=== PATIENT | male | born 1955 | race Caucasian/White ===

== ENCOUNTER 2018-01-28 12:54 | Inpatient (IN) | payer OTHER ==
[~2018-01-28] VITALS: Ht 177.8 cm; Wt 81.4 kg
[~2018-01-28 12:54] MED LIST: ARIC23TA PO; NAME5TAB2 PO; SERT25TA83 PO
[2018-01-28 14:05] VITALS: BP 124/73; PULSE 120; RESP 18; TEMP 96.9; O2SAT 96
[2018-01-28] MEDS ORDERED: ADVA250A INH (14:38)
[2018-01-28] MEDS ORDERED: ATOR40TA16 PO (14:39)
[2018-01-28] MEDS ORDERED: DIVA250T3 PO (14:39)
[2018-01-28] MEDS ORDERED: DONE10TA7 PO (14:42)
[2018-01-28] MEDS ORDERED: LISI-585 PO (14:43)
[2018-01-28] MEDS ORDERED: MEMA1TAB PO (14:43)
[2018-01-28] MEDS ORDERED: RISP0.252 PO ×2 (14:44→14:46)
[2018-01-28] MEDS ORDERED: SERT25TA83 PO (14:46)
[2018-01-28] MEDS ORDERED: MIRTA15 PO (14:47)
--- NOTE | 2018-01-28 14:55 | PD ---
HPI Chief Complaint: Psychiatric Symptoms Time Seen by Provider: 14:29 Travel History International Travel<30 days: No Contact w/Intl Traveler<30days: No Traveled to known affect area: No History of Present Illness HPI Patient is a 62-year-old male presenting to emergency department for psychiatric evaluation under Lewis act. Per the Lewis act report patient was acting aggressively. He stated that he would hurt however he wanted to. [facility] reported that he was not taking his medications however his medication reconciliation from the [facility] shows medications have been given. Patient states he has been taking his medications. Patient denies any complaints at this time. He denies any significant past medical history. He denies any suicidal homicidal ideations, hallucinations both auditory and visual. Symptom onset is unknown, symptom severity is unknown. PFSH Past Medical History Depression: Yes High Cholesterol: Yes COPD: Yes Dementia: Yes Psychiatric: Yes Past Surgical History Other Surgery: Yes (FACIAL SURGERY) Social History Alcohol Use: No Tobacco Use: Yes (/2 PPD) Substance Use: No (PT DENIES) Allergies-Medications (Allergen,Severity, Reaction): Coded Allergies: No Known Allergies (Unverified Allergy, Unknown, 01/28/18) Per paperwork brought in from facility. Reported Meds & Prescriptions Reported Meds & Active Scripts Active Reported Mirtazapine 15 Mg Tab 15 Mg PO HS PRN Sertraline (Sertraline HCl) 25 Mg Tab 25 Mg PO DAILY Risperidone 0.25 Mg Tab 0.25 Mg PO DAILY (1400) Risperidone 0.25 Mg Tab 0.25 Mg PO Q12HR Memantine 5 Mg Tab 5 Mg PO DAILY Zestoretic (Lisinopril-Hctz) 10-12.5 Mg Tab 1 Tab PO DAILY Donepezil 10 Mg Tab 20 Mg PO HS Divalproex ER (Divalproex Sodium) 250 Mg Kathy 250 Mg PO BID Atorvastatin (Atorvastatin Calcium) 40 Mg Tab 40 Mg PO HS Advair Diskus Inh (Fluticasone-Salmeterol Inh) 250-50 Mcg/Blist Aer 1 Puff INH BID Rinse mouth after use. Review of Systems ROS Limitations: Poor Historian Except as stated in HPI: all other systems reviewed are Neg Psychiatric: No: Depression, Suicidal Ideations, Substance Abuse, Homicidal Ideation Physical Exam Narrative GENERAL: Well-developed, well-nourished, alert elderly male. Presenting in no acute distress. SKIN: Warm and dry. Superficial skin tear to left inner forearm, 0.5 cm. Abrasion to right elbow posteriorly. HEAD: Atraumatic. Normocephalic. EYES: Pupils equal and round. No scleral icterus. No injection or drainage. ENT: No nasal bleeding or discharge. Mucous membranes pink and moist. NECK: Trachea midline. No JVD. CARDIOVASCULAR: Regular rate and rhythm. RESPIRATORY: No accessory muscle use. Clear to auscultation. Breath sounds equal bilaterally. GASTROINTESTINAL: Abdomen soft, non-tender, nondistended. Hepatic and splenic margins not palpable. MUSCULOSKELETAL: Extremities without clubbing, cyanosis, or edema. No obvious deformities. NEUROLOGICAL: Awake and alert, oriented to self only. No obvious cranial nerve deficits. Motor grossly within normal limits. Five out of 5 muscle strength in the arms and legs. Normal speech. PSYCHIATRIC: Appropriate mood and affect; insight and judgment impaired. Data Data Last Documented VS Vital Signs Date Time Temp Pulse Resp B/P (MAP) Pulse Ox O2 Delivery O2 Flow Rate FiO2 01/28/18 18:02 98.7 89 18 148/80 (102) 97 Room Air Orders Orders Complete Blood Count With Diff (01/28/18 14:27) Comprehensive Metabolic Panel (01/28/18 14:27) Thyroid Stimulating Hormone (01/28/18 14:27) Urinalysis - C+S If Indicated (01/28/18 14:27) Psych Screen (01/28/18 14:27) Drug Screen, Random Urine (01/28/18 14:27) Alcohol (Ethanol) (01/28/18 14:27) Salicylates (Aspirin) (01/28/18 14:27) Tylenol (Acetaminophen) (01/28/18 14:27) Diet Regular Basic (01/28/18 Dinner) Labs Laboratory Tests Test 01/28/18 13:04 01/28/18 17:30 White Blood Count 12.1 TH/MM3 Red Blood Count 4.61 MIL/MM3 Hemoglobin 15.0 GM/DL Hematocrit 44.0 % Mean Corpuscular Volume 95.5 FL Mean Corpuscular Hemoglobin 32.6 PG Mean Corpuscular Hemoglobin Concent 34.1 % Red Cell Distribution Width 13.2 % Platelet Count 371 TH/MM3 Mean Platelet Volume 8.8 FL Neutrophils (%) (Auto) 57.5 % Lymphocytes (%) (Auto) 28.5 % Monocytes (%) (Auto) 11.9 % Eosinophils (%) (Auto) 1.6 % Basophils (%) (Auto) 0.5 % Neutrophils # (Auto) 7.0 TH/MM3 Lymphocytes # (Auto) 3.5 TH/MM3 Monocytes # (Auto) 1.4 TH/MM3 Eosinophils # (Auto) 0.2 TH/MM3 Basophils # (Auto) 0.1 TH/MM3 CBC Comment DIFF FINAL Differential Comment Blood Urea Nitrogen 16 MG/DL Creatinine 1.51 MG/DL Random Glucose 129 MG/DL Total Protein 8.4 GM/DL Albumin 4.0 GM/DL Calcium Level 9.3 MG/DL Alkaline Phosphatase 74 U/L Aspartate Amino Transf (AST/SGOT) 15 U/L Alanine Aminotransferase (ALT/SGPT) 18 U/L Total Bilirubin 0.4 MG/DL Sodium Level 138 MEQ/L Potassium Level 4.2 MEQ/L Chloride Level 103 MEQ/L Carbon Dioxide Level 19.2 MEQ/L Anion Gap 16 MEQ/L Estimat Glomerular Filtration Rate 47 ML/MIN Thyroid Stimulating Hormone 3rd Gen 2.010 uIU/ML Salicylates Level LESS THAN 1.7 MG/DL Acetaminophen Level LESS THAN 2.0 MCG/ML Ethyl Alcohol Level LESS THAN 3 MG/DL Urine Color YELLOW Urine Turbidity CLEAR Urine pH 6.0 Urine Specific [place] 1.021 Urine Protein NEG mg/dL Urine Glucose (UA) NEG mg/dL Urine Ketones NEG mg/dL Urine Occult Blood NEG Urine Nitrite NEG Urine Bilirubin NEG Urine Urobilinogen LESS THAN 2.0 MG/DL Urine Leukocyte Esterase TRACE Urine RBC 1 /hpf Urine WBC LESS THAN 1 /hpf Urine Bacteria RARE /hpf Urine Hyaline Casts 5 /lpf Urine Mucus FEW /lpf Microscopic Urinalysis Comment CULT NOT INDICATED Urine Opiates Screen NEG Urine Barbiturates Screen NEG Urine Amphetamines Screen NEG Urine Benzodiazepines Screen NEG Urine Cocaine Screen NEG Urine Cannabinoids Screen NEG MDM Medical Decision Making Medical Screen Exam Complete: Yes Emergency Medical Condition: Yes Interpretation(s) Laboratory Tests Test 01/28/18 13:04 01/28/18 17:30 White Blood Count 12.1 TH/MM3 Red Blood Count 4.61 MIL/MM3 Hemoglobin 15.0 GM/DL Hematocrit 44.0 % Mean Corpuscular Volume 95.5 FL Mean Corpuscular Hemoglobin 32.6 PG Mean Corpuscular Hemoglobin Concent 34.1 % Red Cell Distribution Width 13.2 % Platelet Count 371 TH/MM3 Mean Platelet Volume 8.8 FL Neutrophils (%) (Auto) 57.5 % Lymphocytes (%) (Auto) 28.5 % Monocytes (%) (Auto) 11.9 % Eosinophils (%) (Auto) 1.6 % Basophils (%) (Auto) 0.5 % Neutrophils # (Auto) 7.0 TH/MM3 Lymphocytes # (Auto) 3.5 TH/MM3 Monocytes # (Auto) 1.4 TH/MM3 Eosinophils # (Auto) 0.2 TH/MM3 Basophils # (Auto) 0.1 TH/MM3 CBC Comment DIFF FINAL Differential Comment Blood Urea Nitrogen 16 MG/DL Creatinine 1.51 MG/DL Random Glucose 129 MG/DL Total Protein 8.4 GM/DL Albumin 4.0 GM/DL Calcium Level 9.3 MG/DL Alkaline Phosphatase 74 U/L Aspartate Amino Transf (AST/SGOT) 15 U/L Alanine Aminotransferase (ALT/SGPT) 18 U/L Total Bilirubin 0.4 MG/DL Sodium Level 138 MEQ/L Potassium Level 4.2 MEQ/L Chloride Level 103 MEQ/L Carbon Dioxide Level 19.2 MEQ/L Anion Gap 16 MEQ/L Estimat Glomerular Filtration Rate 47 ML/MIN Thyroid Stimulating Hormone 3rd Gen 2.010 uIU/ML Salicylates Level LESS THAN 1.7 MG/DL Acetaminophen Level LESS THAN 2.0 MCG/ML Ethyl Alcohol Level LESS THAN 3 MG/DL Urine Color YELLOW Urine Turbidity CLEAR Urine pH 6.0 Urine Specific [place] 1.021 Urine Protein NEG mg/dL Urine Glucose (UA) NEG mg/dL Urine Ketones NEG mg/dL Urine Occult Blood NEG Urine Nitrite NEG Urine Bilirubin NEG Urine Urobilinogen LESS THAN 2.0 MG/DL Urine Leukocyte Esterase TRACE Urine RBC 1 /hpf Urine WBC LESS THAN 1 /hpf Urine Bacteria RARE /hpf Urine Hyaline Casts 5 /lpf Urine Mucus FEW /lpf Microscopic Urinalysis Comment CULT NOT INDICATED Urine Opiates Screen NEG Urine Barbiturates Screen NEG Urine Amphetamines Screen NEG Urine Benzodiazepines Screen NEG Urine Cocaine Screen NEG Urine Cannabinoids Screen NEG Vital Signs Date Time Temp Pulse Resp B/P (MAP) Pulse Ox O2 Delivery O2 Flow Rate FiO2 01/28/18 18:02 98.7 89 18 148/80 (102) 97 Room Air 01/28/18 16:01 83 134/70 (91) 01/28/18 14:05 96.9 120 18 124/73 (90) 96 Room Air Differential Diagnosis Mood disorder versus UTI versus metabolic abnormality versus psychosis versus dementia versus other Narrative Course Patient is a 62-year-old well-appearing male. Presenting under Lewis act for psychiatric evaluation secondary to making threatening statements. Patient denies this. He denies noncompliance of medications. Medication reconciliation from the [facility] facility shows patient has been taking his medications. Mental health screening discussed with the patient. Psychiatric screen ordered. Labs reviewed, no acute findings identified. Patient was initially tachycardic on arrival, his vital signs are reassessed, heart rate is normalized. Patient is medically clear for psychiatric evaluation. Diagnosis Primary Impression: Medical clearance for psychiatric admission Condition: Stable Jillian Wasserman Jan 28, 2018 14:55
[2018-01-28 15:23] LABS: BASOPHIL # 0.1 TH/MM3 (0-0.2); BASOPHIL % 0.5 % (0.0-2.0); EOSINOPHIL # 0.2 TH/MM3 (0-0.4); EOSINOPHIL % 1.6 % (0.0-4.0); LYMPH % 28.5 % (9.0-44.0); LYMPHOCYTE # 3.5 TH/MM3 (1.0-4.8); MEAN CELL VOLUME 95.5 FL (80.0-100.0); MEAN CORPUSCULAR HEMOGLOBIN 32.6 PG (27.0-34.0); MEAN CORPUSCULAR HGB CONC 34.1 % (32.0-36.0); MEAN PLATELET VOLUME 8.8 FL (7.0-11.0); MONO % 11.9 % (0.0-8.0); MONOCYTE # 1.4 TH/MM3 (0-0.9); NEUT % 57.5 % (16.0-70.0); PLATELET COUNT 371 TH/MM3 (150-450); RED BLOOD COUNT 4.61 MIL/MM3 (4.50-5.90); RED CELL DISTRIBUTION WIDTH 13.2 % (11.6-17.2); WHITE BLOOD COUNT 12.1 TH/MM3 (4.0-11.0)
[2018-01-28 15:41] LABS: AST (GOT) 15 U/L (15-37); BICARBONATE 19.2 MEQ/L (21.0-32.0); BLOOD UREA NITROGEN 16 MG/DL (7-18); CALCIUM 9.3 MG/DL (8.5-10.1); CHLORIDE 103 MEQ/L (98-107); CREATININE 1.51 MG/DL (0.60-1.30); GLOMERULAR FILTRATION RATE 47 ML/MIN (>89); GLUCOSE,RANDOM 129 MG/DL (74-106); SODIUM (NA) 138 MEQ/L (136-145)
[2018-01-28 15:42] LABS: ACETAMINOPHEN LESS THAN 2.0 MCG/ML (10.0-30.0)
[2018-01-28 15:48] LABS: ALKALINE PHOSPHATASE 74 U/L (45-117); ALT (GPT) 18 U/L (12-78); TOTAL BILIRUBIN ADULT 0.4 MG/DL (0.2-1.0); TOTAL PROTEIN 8.4 GM/DL (6.4-8.2)
[2018-01-28 16:01] VITALS: BP 134/70; PULSE 83
[2018-01-28 18:02] VITALS: BP 148/80; PULSE 89; RESP 18; TEMP 98.7; O2SAT 97
[2018-01-28 18:58] LABS: BACTERIA, URINE RARE /hpf; BILIRUBIN, URINE NEG (NEG); BLOOD, URINE NEG (NEG); GLUCOSE,URINE NEG (NEG); HYALINE CAST, URINE 5 /lpf (RARE); KETONE, URINE NEG (NEG); MUCUS URINE FEW /lpf (OCC); NITRITE,URINE NEG (NEG); URINE COLOR YELLOW (YELLW/STRAW); URINE LEUKOCYTE ESTERASE TRACE (NEG)
[2018-01-28 22:31] VITALS: BP 151/69; PULSE 88; RESP 18; TEMP 98; O2SAT 96
[2018-01-29] MEDS ORDERED: risperiDONE 0.25 MG TAB PO ONE (01:45)
[2018-01-29] MEDS ORDERED: MIRTAZAPINE 15 MG TAB PO ONE (01:45)
[2018-01-29] MEDS ORDERED: DONEPEZIL HCL 5 MG TAB PO ONE (01:45)
[2018-01-29] MEDS ORDERED: MEMANTINE HCL 5 MG TAB PO ONE (01:45)
[2018-01-29 07:07] VITALS: BP 129/72; PULSE 74; RESP 18; TEMP 97.8; O2SAT 97
[2018-01-29] MEDS: HYDROCHLOROTHIAZIDE 25 MG TAB PO SCH (09:08)
[2018-01-29] MEDS: LISINOPRIL 10 MG TAB PO SCH (09:08)
--- NOTE | 2018-01-29 09:13 | HHI.HP ---
Provisional Diagnosis Admission Date Blanco I. Dementia with behavioral disturbances Blanco II. Deferred Blanco III. Hypertension, hypercholesterolemia Certification of Person's Competence To Provide Express and Informed Consent I have personally examined Kenneth Head , a person being served at [facility] on, Jan 29, 2018 09:05. Express and informed consent means consent voluntarily given in writing, by a competent person, after sufficient explanation and disclosure of the subject matter involved to enable the person to make a knowing and willful decision without any element of force, fraud, deceit, duress, or other form of constraint or coercion. This person is 18 years of age or older, is not now known to be incompetent to consent to treatment with a guardian advocate, and does not have a health care surrogate or proxy currently making medical treatment decisions. I have found this person to be one of the following: [] Competent to provide express and informed consent, as defined above, for voluntary admission to this facility and is competent to provide express and informed consent for treatment. He/she has the consistent capacity to make well reasoned, willful, and knowing decisions concerning his or her medical or mental health treatment. The person fully and consistently understands the purpose of the admission for examination/placement and is fully capable of personally exercising all rights [place] [x] Incompetent to provide express and informed consent to voluntary admission, and this is incompetent to provide express and informed consent to treatment. The person must be transferred to involuntary status and a petition for a guardian advocate filed with the Circuit Court. [] Refusing to provide express and informed consent to voluntary admission but is competent to provide express and informed consent for treatment. The person must be discharged or transferred to involuntary status. Form shall be completed within 24 hours of a person's arrival at the receiving facility and filed in the clinical record of each person: 1. Admitted on a voluntary basis 2. Permitted to provide express and informed consent to his/her own treatment 3. Allowed to transfer from involuntary to voluntary status 4. Prior to permitting a person to consent to his or her own treatment after having been previously found incompetent to consent to treatment. History of Present Illness Capacity: Lacks Capacity HPI The patient 62-year-old domiciled in [facility], he is single, retired, with psychiatric history of dementia, unknown previous hospitalization, he denies suicide attempts, he denies the use of illegal drugs and alcohol, medical history of hypertension, hypercholesterolemia, who presents to emergency department for psychiatric evaluation under Lewis act. Per the Lewis act report patient was acting aggressively. He stated that he would hurt however he wanted to. The residential reported that he was not taking his medications however his medication reconciliation from the residential shows medications have been given. Patient states he has been taking his medications. Patient denies any complaints at this time. He denies any significant past medical history. He denies any suicidal homicidal ideations, hallucinations both auditory and visual. Symptom onset is unknown, symptom severity is unknown. On my psychiatric evaluation today the patient is disorganized, agitated, hyperactive, talking to himself. 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 The patient is just oriented in person, disoriented in time and place. As per nurse report, the patient has been agitated, at times aggressive, the patient did not sleep at all last night talking to himself. Past Family Social History Coded Allergies: No Known Allergies (Unverified Allergy, Unknown, 01/28/18) Per paperwork brought in from facility. Reported Medications Mirtazapine (Mirtazapine) 15 Mg Tab, 15 MG PO HS Y for INSOMNIA, #30 TAB 0 Refills 01/28/18 Sertraline (Sertraline) 25 Mg Tab, 25 MG PO DAILY, #30 TAB 0 Refills 01/28/18 Risperidone (Risperidone) 0.25 Mg Tab, 0.25 MG PO DAILY (1400), #30 TAB 0 Refills 01/28/18 Risperidone (Risperidone) 0.25 Mg Tab, 0.25 MG PO Q12HR, #60 TAB 0 Refills 01/28/18 Memantine (Memantine) 5 Mg Tab, 5 MG PO DAILY for Alzheimer's Dementia, TAB 0 Refills 01/28/18 Lisinopril-Hctz (Zestoretic) 10-12.5 Mg Tab, 1 TAB PO DAILY for Blood Pressure Management, #30 TAB 0 Refills 01/28/18 Donepezil (Donepezil) 10 Mg Tab, 20 MG PO HS for Dementia, #30 TAB 0 Refills 01/28/18 Divalproex ER (Divalproex ER) 250 Mg Kathy, 250 MG PO BID for Control Seizures, #30 TAB 0 Refills 01/28/18 Atorvastatin (Atorvastatin) 40 Mg Tab, 40 MG PO HS for Cholesterol Management, # 30 TAB 0 Refills 01/28/18 Fluticasone-Salmeterol Inh (Advair Diskus Inh) 250-50 Mcg/Blist Aer, 1 PUFF INH BID, #1 INHALER 0 Refills Rinse mouth after use. 01/28/18 Discontinued Reported Medications Sertraline 25 mg (Sertraline 25 mg) 25 Mg Tab, 12.5 MG PO DAILY, TAB 07/07/14 Memantine Hcl (Namenda) 5 Mg Tab, 5 MG PO DAILY, TAB 07/07/14 Donepezil Hydrochloride (Aricept) 23 Mg Tab, 23 MG PO HS, TAB 07/07/14 Current Medications Medications (Trade) Dose Ordered Sig/Erasmo Route Start Time Stop Time Status Last Admin (Ativan) 1 mg Q6H PRN PO 01/29/18 09:15 UNV (Ativan Inj) 1 mg Q6H PRN IM 01/29/18 09:15 UNV (Tylenol) 650 mg Q4H PRN PO 01/29/18 09:15 UNV (Milk Of Magnesia Liq) 30 ml DAILY PRN PO 01/29/18 09:15 UNV (Mag-Al Plus Susp Liq) 30 ml Q6H PRN PO 01/29/18 09:15 UNV (Habitrol 21 Mg Patch.24 Hr) 1 patch DAILY T-DERMAL 01/30/18 09:00 UNV Physical Exam Vital Signs Vital Signs Date Time Temp Pulse Resp B/P (MAP) Pulse Ox O2 Delivery O2 Flow Rate FiO2 01/29/18 07:07 97.8 74 18 129/72 (91) 97 Room Air Lab Results Test 01/28/18 13:04 01/28/18 17:30 White Blood Count 12.1 TH/MM3 Red Blood Count 4.61 MIL/MM3 Hemoglobin 15.0 GM/DL Hematocrit 44.0 % Mean Corpuscular Volume 95.5 FL Mean Corpuscular Hemoglobin 32.6 PG Mean Corpuscular Hemoglobin Concent 34.1 % Red Cell Distribution Width 13.2 % Platelet Count 371 TH/MM3 Mean Platelet Volume 8.8 FL Neutrophils (%) (Auto) 57.5 % Lymphocytes (%) (Auto) 28.5 % Monocytes (%) (Auto) 11.9 % Eosinophils (%) (Auto) 1.6 % Basophils (%) (Auto) 0.5 % Neutrophils # (Auto) 7.0 TH/MM3 Lymphocytes # (Auto) 3.5 TH/MM3 Monocytes # (Auto) 1.4 TH/MM3 Eosinophils # (Auto) 0.2 TH/MM3 Basophils # (Auto) 0.1 TH/MM3 CBC Comment DIFF FINAL Differential Comment Blood Urea Nitrogen 16 MG/DL Creatinine 1.51 MG/DL Random Glucose 129 MG/DL Total Protein 8.4 GM/DL Albumin 4.0 GM/DL Calcium Level 9.3 MG/DL Alkaline Phosphatase 74 U/L Aspartate Amino Transf (AST/SGOT) 15 U/L Alanine Aminotransferase (ALT/SGPT) 18 U/L Total Bilirubin 0.4 MG/DL Sodium Level 138 MEQ/L Potassium Level 4.2 MEQ/L Chloride Level 103 MEQ/L Carbon Dioxide Level 19.2 MEQ/L Anion Gap 16 MEQ/L Estimat Glomerular Filtration Rate 47 ML/MIN Thyroid Stimulating Hormone 3rd Gen 2.010 uIU/ML Salicylates Level LESS THAN 1.7 MG/DL Acetaminophen Level LESS THAN 2.0 MCG/ML Ethyl Alcohol Level LESS THAN 3 MG/DL Urine Color YELLOW Urine Turbidity CLEAR Urine pH 6.0 Urine Specific [place] 1.021 Urine Protein NEG mg/dL Urine Glucose (UA) NEG mg/dL Urine Ketones NEG mg/dL Urine Occult Blood NEG Urine Nitrite NEG Urine Bilirubin NEG Urine Urobilinogen LESS THAN 2.0 MG/DL Urine Leukocyte Esterase TRACE Urine RBC 1 /hpf Urine WBC LESS THAN 1 /hpf Urine Bacteria RARE /hpf Urine Hyaline Casts 5 /lpf Urine Mucus FEW /lpf Microscopic Urinalysis Comment CULT NOT INDICATED Urine Opiates Screen NEG Urine Barbiturates Screen NEG Urine Amphetamines Screen NEG Urine Benzodiazepines Screen NEG Urine Cocaine Screen NEG Urine Cannabinoids Screen NEG Mental Status Examination Appearance: Disheveled Consciousness: Alert Orientation: Person Motor Activity: Abnormal gait Speech: Incoherent Language: Adequate Fund of Knowledge: Inadequate Attention and Concentration: Adequate Memory: Impaired Mood: Appropriate Affect: Appropriate Thought Process & Associations: Loose associations Thought Content: Bizarre thinking Hallucination Type: None Delusion Type: Bizarre Suicidal Ideation: No Suicidal Plan: No Suicidal Intention: No Homicidal Ideation: No Homicidal Plan: No Homicidal Intention: No Insight: Poor Judgment: Poor Assessment & Plan Problem List: (1) Dementia with behavioral disturbance ICD Codes: F03.91 - Unspecified dementia with behavioral disturbance Assessment & Plan: On psychiatric evaluation today the patient is very disorganized, hyperactive, agitated, he has been talking to himself, activated, did not sleep at all last night, he has reportedly been agitated and aggressive in his residential facility. This moment the patient represents danger to himself and others due to the level of psychosis and agitation. Patient will be admitted in psychiatry for stabilization and safety. I will restart his outpatient psychotropic medications, mirtazapine 15 mg, Zoloft 25, Risperdal 0.25 mg twice daily, Depakote 250 mg twice daily. I will order Depakote level. Will order a psychiatric consult for second opinion, hospitalist consult to follow-up medical conditions. turntable worker intervention for collateral information, psychosocial assessment, individual and group therapies and to coordinate safe discharge. Assessment & Plan Estimated LOS: Rolf Goodrich MD Jan 29, 2018 09:13
[2018-01-29] MEDS ORDERED: ACETAMINOPHEN 325 MG TAB PO PRN (09:15)
[2018-01-29] MEDS ORDERED: NON-FORMULARY DRUG (Lisinopril-Hctz (Zestoretic) 1 TAB) PO SCH (09:15)
[2018-01-29] MEDS: risperiDONE 0.25 MG TAB PO SCH ×2 (09:15→20:48)
[2018-01-29] MEDS ORDERED: LORazepam 2 MG/ML VIAL IM PRN ×2 (09:15)
[2018-01-29] MEDS ORDERED: LORazepam 0.5 MG TAB PO PRN (09:15)
[2018-01-29] MEDS ORDERED: LORazepam 1 MG TAB PO PRN (09:15)
[2018-01-29] MEDS ORDERED: MAGNESIUM HYDROXIDE SUSP 30 ML CUP PO PRN (09:15)
[2018-01-29] MEDS: DIVALPROEX SODIUM E.R. 250 MG TAB PO SCH ×2 (09:15→20:48)
[2018-01-29] MEDS ORDERED: ALUMINUM/MAGNESIUM/SIMETH 30 ML CUP PO PRN (09:15)
[2018-01-29] MEDS ORDERED: PILL SPLITTER OTHER PRN (09:15)
[2018-01-29] MEDS: BUDESONIDE-FORMOTEROL 160/4.5 MCG INHALER INH SCH ×2 (09:15→20:49)
[2018-01-29] MEDS: SERTRALINE HCL 50 MG TAB PO SCH (09:15)
[2018-01-29 11:45] VITALS: BP 139/82; PULSE 118; RESP 17; TEMP 97.6
[2018-01-29 17:55] VITALS: BP 174/72; PULSE 70; RESP 18; TEMP 97.8; O2SAT 98
[2018-01-29] MEDS: ATORVASTATIN 40 MG TAB PO SCH (20:48)
[2018-01-29] MEDS: DONEPEZIL HCL 5 MG TAB PO SCH (20:48)
[2018-01-29] MEDS ORDERED: MIRTAZAPINE 15 MG TAB PO PRN (21:00)
[2018-01-30 05:50] VITALS: BP 141/53; PULSE 67; RESP 16; TEMP 98.3; O2SAT 95
[2018-01-30] MEDS: DIVALPROEX SODIUM E.R. 250 MG TAB PO SCH ×2 (09:00→21:00)
[2018-01-30] MEDS: BUDESONIDE-FORMOTEROL 160/4.5 MCG INHALER INH SCH ×2 (09:00→21:09)
[2018-01-30] MEDS: SERTRALINE HCL 50 MG TAB PO SCH (09:00)
[2018-01-30] MEDS: risperiDONE 0.25 MG TAB PO SCH ×2 (09:00→21:00)
[2018-01-30] MEDS: LISINOPRIL 10 MG TAB PO SCH (09:00)
[2018-01-30] MEDS: NICOTINE 21 MG/24 HR PATCH T-DERMAL SCH ×2 (09:00→09:19)
[2018-01-30] MEDS: HYDROCHLOROTHIAZIDE 25 MG TAB PO SCH (09:00)
--- NOTE | 2018-01-30 15:20 | HHI.PYPN ---
Subjective Remarks This is a request for second opinion. Admission note was reviewed and I agree with the history. Patient was seen and case was discussed with nursing. Patient is very delusional and psychotic today. He is grandiose believing that he is the president and orders me out of the room after a few questions. He believes he has to [place] and thinks that a ride is coming to pick him up today. Seclusive to self Mental Status Examination Appearance: Disheveled Consciousness: Alert Orientation: Person Motor Activity: Abnormal gait Speech: Incoherent Language: Adequate Fund of Knowledge: Inadequate Attention and Concentration: Adequate Memory: Impaired Mood: Appropriate Affect: Appropriate Thought Process & Associations: Loose associations Thought Content: Bizarre thinking Hallucination Type: None Delusion Type: Bizarre, Other (Grandiose) Suicidal Ideation: No Suicidal Plan: No Suicidal Intention: No Homicidal Ideation: No Homicidal Plan: No Homicidal Intention: No Insight: Poor Judgment: Poor Results Vitals/IOs Vital Signs Date Time Temp Pulse Resp B/P (MAP) Pulse Ox O2 Delivery O2 Flow Rate FiO2 01/30/18 05:50 98.3 67 16 141/53 (82) 95 01/29/18 07:07 Room Air Assessment & Plan Problem List: (1) Dementia with behavioral disturbance ICD Codes: F03.91 - Unspecified dementia with behavioral disturbance Assessment & Plan I agree with the first opinion to continue petition. Criteria include acute psychosis Justification for Cont. Inpt. Patient would decompensate in a less restrictive setting Octavio Mcrae DO Jan 30, 2018 15:20
[2018-01-30 17:46] VITALS: BP 125/58; PULSE 93; RESP 18; TEMP 98.7; O2SAT 97
[2018-01-30] MEDS: REMOVE OLD NICODERM (NICOTINE) PATCH T-DERMAL SCH (21:00)
[2018-01-30] MEDS: DONEPEZIL HCL 5 MG TAB PO SCH (21:10)
[2018-01-30] MEDS: ATORVASTATIN 40 MG TAB PO SCH (21:11)
[2018-01-31 06:20] VITALS: BP 135/76; PULSE 69; RESP 16; TEMP 97.9; O2SAT 94
[2018-01-31] MEDS: LISINOPRIL 10 MG TAB PO SCH (08:30)
[2018-01-31] MEDS: HYDROCHLOROTHIAZIDE 25 MG TAB PO SCH (08:30)
[2018-01-31] MEDS: BUDESONIDE-FORMOTEROL 160/4.5 MCG INHALER INH SCH ×2 (08:30→21:18)
[2018-01-31] MEDS ORDERED: hydrOXYzine HCL 50 MG TAB PO PRN (16:45)
--- NOTE | 2018-01-31 16:50 | HHI.PYPN ---
Subjective Remarks Patient is seen in his room with nurse Andrei, chart reviewed, patient complaint medication, patient discussed with nurse. Patient laying in his bed alert initially, however when I started assessing him for his orientation became quite angry pointed at me then pointed out the door and said get the hell out of here. However is noted he is disoriented to place time and situation. Dr. Fitzgerald did initial psych history and physical I reviewed that I have completed the initial psychiatric template orders and med reconciliation Review of Systems Except as stated in HPI: all other systems reviewed are Neg Mental Status Examination Appearance: Disheveled Consciousness: Alert Orientation: Person Motor Activity: Abnormal gait Speech: Incoherent Language: Adequate Fund of Knowledge: Inadequate Attention and Concentration: Adequate Memory: Impaired Mood: Appropriate Affect: Appropriate Thought Process & Associations: Loose associations Thought Content: Bizarre thinking Hallucination Type: None Delusion Type: Bizarre, Other (Grandiose) Suicidal Ideation: No Suicidal Plan: No Suicidal Intention: No Homicidal Ideation: No Homicidal Plan: No Homicidal Intention: No Insight: Poor Judgment: Poor Results Vitals/IOs Vital Signs Date Time Temp Pulse Resp B/P (MAP) Pulse Ox O2 Delivery O2 Flow Rate FiO2 01/31/18 06:20 97.9 69 16 135/76 (95) 94 01/29/18 07:07 Room Air Intake and Output 01/31/18 01/31/18 01/31/18 07:59 15:59 23:59 Intake Total 240 ml 600 ml Balance 240 ml 600 ml Assessment & Plan Problem List: (1) DEMENTIA IN OTH DISEASES CLASSD ELSWHR W BEHAVIORAL DISTURB ICD Codes: F02.81 - DEMENTIA IN OTH DISEASES CLASSD ELSWHR W BEHAVIORAL DISTURB (2) ALZHEIMER'S DISEASE WITH LATE ONSET ICD Codes: G30.1 - ALZHEIMER'S DISEASE WITH LATE ONSET Assessment & Plan Estimated LOS: days patient remains quite demented confused labile strong psychotic flavor. For now continue medications no change Justification for Cont. Inpt. At this time patient would decompensate and placed in the lower level of care Discharge Planning To be determined Woo Topete MD Jan 31, 2018 16:50
[2018-01-31 18:10] VITALS: BP 127/63; PULSE 73; RESP 16; TEMP 98.2; O2SAT 96
[2018-01-31] MEDS: REMOVE OLD NICODERM (NICOTINE) PATCH T-DERMAL SCH (21:00)
[2018-01-31] MEDS: ATORVASTATIN 40 MG TAB PO SCH ×2 (21:17→21:18)
[2018-01-31] MEDS: DONEPEZIL HCL 5 MG TAB PO SCH ×2 (21:17→21:19)
[2018-02-01 05:56] VITALS: BP 126/60; PULSE 69; TEMP 97.8; O2SAT 97
[2018-02-01] MEDS: BUDESONIDE-FORMOTEROL 160/4.5 MCG INHALER INH SCH ×2 (08:34→20:30)
[2018-02-01] MEDS: LISINOPRIL 10 MG TAB PO SCH (08:34)
[2018-02-01] MEDS: HYDROCHLOROTHIAZIDE 25 MG TAB PO SCH (08:34)
[2018-02-01] MEDS: NICOTINE 21 MG/24 HR PATCH T-DERMAL SCH (08:41)
--- NOTE | 2018-02-01 13:02 | PD.TTN ---
Patient Problems 1. Discharge planning 2. Medication compliance 3. Knowledge deficit 4. Lack of coping skills Progress Toward Goals Provider Present: Dr. Maggie Topete Provider Input: 01/31/18 patient is new , appearing psychotic Psychiatric Counselors Present: Jennifer Duran LCSW Psych Therapist Input: 01/31/18 patient came from [facility]. New today Group Spec/RT/OT/GARRETT Present: MARK Carey Group Spec/RT/OT/GARRETT Input: 01/31/18 new to rec tx Jennifer Duran LCSW Feb 01, 2018 13:02
--- NOTE | 2018-02-01 13:08 | HHI.PYPN ---
Subjective Remarks Patient is seen in his room with nurse Amy and counselor Jennifer, chart reviewed , patient complaint medications, patient discussed with nurse. Patient laying in bed flat on his back with covers to his children and was noted as we entered the room he was talking to himself in a conversational tone. He is calm and appropriate although somewhat condescending when spoken to in a nonthreatening manner. 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 Today I did not challenge his memory. Patient is on no psychotropic medications. We do not have permission. We need to wait for [place] she is scheduled in 2 days to get a guardian advocate to help us medicate this man Review of Systems Except as stated in HPI: all other systems reviewed are Neg Mental Status Examination Appearance: Disheveled Consciousness: Alert Orientation: Person Motor Activity: Abnormal gait Speech: Incoherent Language: Adequate Fund of Knowledge: Inadequate Attention and Concentration: Adequate Memory: Impaired Mood: Appropriate Affect: Appropriate Thought Process & Associations: Loose associations Thought Content: Bizarre thinking Hallucination Type: None Delusion Type: Bizarre, Other ([place]) Suicidal Ideation: No Suicidal Plan: No Suicidal Intention: No Homicidal Ideation: No Homicidal Plan: No Homicidal Intention: No Insight: Poor Judgment: Poor Results Vitals/IOs Vital Signs Date Time Temp Pulse Resp B/P (MAP) Pulse Ox O2 Delivery O2 Flow Rate FiO2 02/01/18 05:56 97.8 69 126/60 (82) 97 01/31/18 18:10 16 01/29/18 07:07 Room Air Assessment & Plan Problem List: (1) DEMENTIA IN OTH DISEASES CLASSD ELSWHR W BEHAVIORAL DISTURB ICD Codes: F02.81 - DEMENTIA IN OTH DISEASES CLASSD ELSWHR W BEHAVIORAL DISTURB (2) ALZHEIMER'S DISEASE WITH LATE ONSET ICD Codes: G30.1 - ALZHEIMER'S DISEASE WITH LATE ONSET Assessment & Plan Estimated LOS: days patient is confused and demented labile somewhat vigilance and paranoid. There also appears to be a somewhat minimally contain temper issues with this man Justification for Cont. Inpt. At this time patient would decompensate and placed on a lower level of care Discharge Planning To be determined Woo Topete MD Feb 01, 2018 13:08
--- NOTE | 2018-02-01 13:24 | PD.TTN ---
Patient Problems 1. Discharge planning 2. Medication compliance 3. Knowledge deficit 4. Lack of coping skills Progress Toward Goals Provider Present: Dr. Maggie Topete Provider Input: 01/31/18 patient is new , appearing psychotic Psychiatric Counselors Present: Jennifer Duran LCSW Psych Therapist Input: 01/31/18 patient came from [facility]. New today. He refuses to talk. Group Spec/RT/OT/GARRETT Present: Barbara Silveira [employer] Group Spec/RT/OT/GARRETT Input: 01/31/18 new to rec tx and refuses to talk Jennifer Duran LCSW Feb 01, 2018 13:24
[2018-02-01 18:08] VITALS: BP 107/61; PULSE 80; RESP 16; TEMP 98; O2SAT 96
[2018-02-01] MEDS: DONEPEZIL HCL 5 MG TAB PO SCH (20:30)
[2018-02-01] MEDS: REMOVE OLD NICODERM (NICOTINE) PATCH T-DERMAL SCH (20:44)
[2018-02-01] MEDS: ATORVASTATIN 40 MG TAB PO SCH (20:44)
[2018-02-02 05:00] VITALS: BP 133/59; PULSE 65; RESP 18; TEMP 97.5; O2SAT 96
[2018-02-02] MEDS: BUDESONIDE-FORMOTEROL 160/4.5 MCG INHALER INH SCH ×2 (08:22→21:49)
[2018-02-02] MEDS: LISINOPRIL 10 MG TAB PO SCH (08:22)
[2018-02-02] MEDS: NICOTINE 21 MG/24 HR PATCH T-DERMAL SCH (08:22)
[2018-02-02] MEDS: HYDROCHLOROTHIAZIDE 25 MG TAB PO SCH (08:22)
--- NOTE | 2018-02-02 11:39 | HHI.PYPN ---
Subjective Remarks Patient is seen in his room with floor staff, chart reviewed, patient discussed with nurse. Patient complaint medications. Patient scheduled for [place] tomorrow. Patient seen in his room continues alert though markedly confused and disoriented. Continues on underlying vigilant suspiciousness and lability. Review of Systems Except as stated in HPI: all other systems reviewed are Neg Mental Status Examination Appearance: Disheveled Consciousness: Alert Orientation: Person Motor Activity: Abnormal gait Speech: Incoherent Language: Adequate Fund of Knowledge: Inadequate Attention and Concentration: Adequate Memory: Impaired Mood: Appropriate Affect: Appropriate Thought Process & Associations: Loose associations Thought Content: Bizarre thinking Hallucination Type: None Delusion Type: Bizarre, Other ([place]) Suicidal Ideation: No Suicidal Plan: No Suicidal Intention: No Homicidal Ideation: No Homicidal Plan: No Homicidal Intention: No Insight: Poor Judgment: Poor Results Vitals/IOs Vital Signs Date Time Temp Pulse Resp B/P (MAP) Pulse Ox O2 Delivery O2 Flow Rate FiO2 02/02/18 05:00 97.5 65 18 133/59 (83) 96 01/29/18 07:07 Room Air Intake and Output 02/02/18 02/02/18 02/03/18 08:00 16:00 00:00 Intake Total 600 ml Balance 600 ml Assessment & Plan Problem List: (1) DEMENTIA IN OTH DISEASES CLASSD ELSWHR W BEHAVIORAL DISTURB ICD Codes: F02.81 - DEMENTIA IN OTH DISEASES CLASSD ELSWHR W BEHAVIORAL DISTURB (2) ALZHEIMER'S DISEASE WITH LATE ONSET ICD Codes: G30.1 - ALZHEIMER'S DISEASE WITH LATE ONSET Assessment & Plan Estimated LOS: days patient continues confused and disoriented superficially combos underlying vigilance and irritability Justification for Cont. Inpt. At this time patient would decompensate a place to the lower level of care Discharge Planning To be determined Request HC Surrog/Guard Advoc?: Yes Woo Topete MD Feb 02, 2018 11:39
--- NOTE | 2018-02-02 14:56 | PD.TTN ---
Patient Problems 1. Discharge planning 2. Medication compliance 3. Knowledge deficit 4. Lack of coping skills Progress Toward Goals Provider Present: Dr. Maggie Topete Provider Input: 02/02/18 patient is still in need to be on medications that he has been on , he remains delusional and talking to self 01/31/18 patient is new , appearing psychotic Psychiatric Counselors Present: Jennifer Duran LCSW Psych Therapist Input: 02/02/18 patient is psychotic and secludes to self 01/31/18 patient came from [facility]. New today. He refuses to talk. Group Spec/RT/OT/GARRETT Present: Barbara Silveira, GPS Group Spec/RT/OT/GARRETT Input: 02/02/18 secludes to self and does not attend groups 01/31/18 new to rec tx and refuses to talk Jennifer Duran LCSW Feb 02, 2018 14:56
[2018-02-02 17:04] VITALS: BP 139/73; PULSE 69; RESP 18; TEMP 97.8; O2SAT 97
[2018-02-02] MEDS: ATORVASTATIN 40 MG TAB PO SCH (20:58)
[2018-02-02] MEDS: DONEPEZIL HCL 5 MG TAB PO SCH (20:58)
[2018-02-02] MEDS: REMOVE OLD NICODERM (NICOTINE) PATCH T-DERMAL SCH (21:00)
[2018-02-03 05:38] VITALS: BP 117/62; PULSE 72; RESP 16; TEMP 97.6
[2018-02-03] MEDS: NICOTINE 21 MG/24 HR PATCH T-DERMAL SCH (09:00)
[2018-02-03] MEDS: BUDESONIDE-FORMOTEROL 160/4.5 MCG INHALER INH SCH ×2 (09:00→21:00)
[2018-02-03] MEDS: LISINOPRIL 10 MG TAB PO SCH (09:17)
[2018-02-03] MEDS: HYDROCHLOROTHIAZIDE 25 MG TAB PO SCH (09:17)
--- NOTE | 2018-02-03 13:24 | HHI.PYPN ---
Subjective Remarks Patient discussed in [place]. Patient retained by Mundo Barbozah with [facility] appointed guardian advocate. Patient did not appear in court due to his volatile angry behavior. Patient public health social worker agreed with that. Patient later seen on the unit before staff, chart reviewed, patient discussed with nurse. He still remains quite volatile if anything concerning his memory or behaviors comes up he becomes more angry threatening and demanding that people leave the room. Once a guardian advocate is appointed need to consider medication. I will be going on vacation starting this afternoon and will be back on 02/17. I would recommend possibly starting the patient on some second- generation atypical perhaps Geodon that can be offered either orally or IM but I would leave the final decision to the condition that is covering this gentleman Review of Systems Except as stated in HPI: all other systems reviewed are Neg Mental Status Examination Appearance: Disheveled Consciousness: Alert Orientation: Person Motor Activity: Abnormal gait Speech: Incoherent Language: Adequate Fund of Knowledge: Inadequate Attention and Concentration: Adequate Memory: Impaired Mood: Appropriate Affect: Appropriate Thought Process & Associations: Loose associations Thought Content: Bizarre thinking Hallucination Type: None Delusion Type: Bizarre, Other ([place]) Suicidal Ideation: No Suicidal Plan: No Suicidal Intention: No Homicidal Ideation: No Homicidal Plan: No Homicidal Intention: No Insight: Poor Judgment: Poor Results Vitals/IOs Vital Signs Date Time Temp Pulse Resp B/P (MAP) Pulse Ox O2 Delivery O2 Flow Rate FiO2 02/03/18 05:38 97.6 72 16 117/62 (80) 02/02/18 17:04 97 Assessment & Plan Problem List: (1) DEMENTIA IN OTH DISEASES CLASSD ELSWHR W BEHAVIORAL DISTURB ICD Codes: F02.81 - DEMENTIA IN OTH DISEASES CLASSD ELSWHR W BEHAVIORAL DISTURB (2) ALZHEIMER'S DISEASE WITH LATE ONSET ICD Codes: G30.1 - ALZHEIMER'S DISEASE WITH LATE ONSET Assessment & Plan Estimated LOS: days patient remains demented confused labile paranoid. It appears a guardian advocate will be appointed. Medication adjustments as mentioned above Justification for Cont. Inpt. At this time patient would decompensate a place to the lower level of care Discharge Planning To be determined possible placement back there is prior to her left once stabilized Request HC Surrog/Guard Advoc?: Yes Woo Topete MD Feb 03, 2018 13:24
[2018-02-03 17:59] VITALS: BP 142/65; PULSE 70; RESP 17; TEMP 98.2; O2SAT 98
[2018-02-03] MEDS: DONEPEZIL HCL 5 MG TAB PO SCH (21:00)
[2018-02-03] MEDS: ATORVASTATIN 40 MG TAB PO SCH (21:00)
[2018-02-03] MEDS: REMOVE OLD NICODERM (NICOTINE) PATCH T-DERMAL SCH (21:00)
[2018-02-04 04:58] VITALS: BP 138/72; PULSE 69; RESP 16; TEMP 97.6; O2SAT 98
[2018-02-04] MEDS: NICOTINE 21 MG/24 HR PATCH T-DERMAL SCH (09:00)
[2018-02-04] MEDS: HYDROCHLOROTHIAZIDE 25 MG TAB PO SCH (09:30)
[2018-02-04] MEDS: LISINOPRIL 10 MG TAB PO SCH (09:31)
[2018-02-04] MEDS: BUDESONIDE-FORMOTEROL 160/4.5 MCG INHALER INH SCH ×2 (09:34→21:57)
[2018-02-04] MEDS ORDERED: ZIPRASIDONE MESYLATE 20 MG VIAL IM PRN (09:45)
--- NOTE | 2018-02-04 12:23 | HHI.PYPN ---
Subjective Remarks Reviewed electronic medical record discussed case with staff. Patient was signed an [place] guardian at [place] yesterday, Jam[place]. Spoke with her on the phone and obtained consent for patient's psychotropic medications. They ordered an EKG for baseline however, patient refused to have one done when the tech arrived. He became irritable and aggressive. Reviewing what records we have here there is no cardiac history so I directed the nurse to begin his medications today. As mentioned earlier, patient's mood is labile. He refused to answer questions and stated, "I demand you let me out now". Unable to assess further. Mental Status Examination Appearance: Disheveled Consciousness: Alert Orientation: Person Motor Activity: Abnormal gait Speech: Incoherent Language: Adequate Fund of Knowledge: Inadequate Attention and Concentration: Adequate Memory: Impaired Mood: Appropriate Affect: Appropriate Thought Process & Associations: Loose associations Thought Content: Bizarre thinking Hallucination Type: None Delusion Type: Bizarre, Other ([place]) Suicidal Ideation: No Suicidal Plan: No Suicidal Intention: No Homicidal Ideation: No Homicidal Plan: No Homicidal Intention: No Insight: Poor Judgment: Poor Results Vitals/IOs Vital Signs Date Time Temp Pulse Resp B/P (MAP) Pulse Ox O2 Delivery O2 Flow Rate FiO2 02/04/18 04:58 97.6 69 16 138/72 (94) 98 Assessment & Plan Problem List: (1) DEMENTIA IN OTH DISEASES CLASSD ELSWHR W BEHAVIORAL DISTURB ICD Codes: F02.81 - DEMENTIA IN OTH DISEASES CLASSD ELSWHR W BEHAVIORAL DISTURB (2) ALZHEIMER'S DISEASE WITH LATE ONSET ICD Codes: G30.1 - ALZHEIMER'S DISEASE WITH LATE ONSET Assessment & Plan Estimated LOS: Patient's medication regimen should start today as consent has been obtained. Patient remains labile and irritable. After patient reaches therapeutic doses will reassess. Days Justification for Cont. Inpt. Moving this patient to a lower level of care would result in decompensation. Patient lacks capacity for self-care. He remains confused and irritable. Request HC Surrog/Guard Advoc?: Yes oRsa Gonzales Feb 04, 2018 12:23
[2018-02-04 17:55] VITALS: BP 146/78; PULSE 118; RESP 16; TEMP 98.3; O2SAT 97
[2018-02-04] MEDS: REMOVE OLD NICODERM (NICOTINE) PATCH T-DERMAL SCH (21:00)
[2018-02-04] MEDS: risperiDONE 0.25 MG TAB PO SCH (21:57)
[2018-02-04] MEDS: ATORVASTATIN 40 MG TAB PO SCH (21:57)
[2018-02-04] MEDS: DIVALPROEX SODIUM E.R. 250 MG TAB PO SCH (21:58)
[2018-02-04] MEDS: ZIPRASIDONE HCL 20 MG CAP PO SCH (21:58)
[2018-02-04] MEDS: DONEPEZIL HCL 5 MG TAB PO SCH (21:58)
[2018-02-05 05:55] VITALS: BP 123/70; PULSE 70; RESP 18; TEMP 97.2; O2SAT 98
[2018-02-05] MEDS: NICOTINE 21 MG/24 HR PATCH T-DERMAL SCH (09:00)
[2018-02-05] MEDS: risperiDONE 0.25 MG TAB PO SCH ×2 (09:08→21:37)
[2018-02-05] MEDS: DIVALPROEX SODIUM E.R. 250 MG TAB PO SCH ×2 (09:09→21:37)
[2018-02-05] MEDS: LISINOPRIL 10 MG TAB PO SCH (09:09)
[2018-02-05] MEDS: ZIPRASIDONE HCL 20 MG CAP PO SCH ×2 (09:09→21:37)
[2018-02-05] MEDS: HYDROCHLOROTHIAZIDE 25 MG TAB PO SCH (09:09)
[2018-02-05] MEDS: BUDESONIDE-FORMOTEROL 160/4.5 MCG INHALER INH SCH ×2 (09:09→21:36)
--- NOTE | 2018-02-05 13:28 | HHI.PYPN ---
Subjective Remarks Patient was seen and case discussed with nursing. Patient is more interactive with the interview. He was not agitated or dismissive as he was last week. No longer believes he is the president's. He is delusional however and is talking to himself throughout the day per nursing. They also noted underlying agitation. Compliant with medications Mental Status Examination Appearance: Disheveled Consciousness: Alert Orientation: Person Motor Activity: Abnormal gait Speech: Incoherent Language: Adequate Fund of Knowledge: Inadequate Attention and Concentration: Adequate Memory: Impaired Mood: Appropriate Affect: Appropriate Thought Process & Associations: Loose associations, Disorganized Thought Content: Bizarre thinking Hallucination Type: None Delusion Type: Bizarre, Other ([place]) Suicidal Ideation: No Suicidal Plan: No Suicidal Intention: No Homicidal Ideation: No Homicidal Plan: No Homicidal Intention: No Insight: Poor Judgment: Poor Results Vitals/IOs Vital Signs Date Time Temp Pulse Resp B/P (MAP) Pulse Ox O2 Delivery O2 Flow Rate FiO2 02/05/18 05:55 97.2 70 18 123/70 (87) 98 Intake and Output 02/05/18 02/05/18 02/06/18 08:00 16:00 00:00 Intake Total 240 ml Balance 240 ml Assessment & Plan Problem List: (1) DEMENTIA IN OTH DISEASES CLASSD ELSWHR W BEHAVIORAL DISTURB ICD Codes: F02.81 - DEMENTIA IN OTH DISEASES CLASSD ELSWHR W BEHAVIORAL DISTURB (2) ALZHEIMER'S DISEASE WITH LATE ONSET ICD Codes: G30.1 - ALZHEIMER'S DISEASE WITH LATE ONSET Assessment & Plan Continue current treatment plan Justification for Cont. Inpt. Patient would decompensate in a less restrictive setting Request HC Surrog/Guard Advoc?: Yes Octavio Mcrae DO Feb 05, 2018 13:28
[2018-02-05 18:15] VITALS: BP 105/63; PULSE 72; RESP 17; TEMP 98; O2SAT 98
[2018-02-05] MEDS: REMOVE OLD NICODERM (NICOTINE) PATCH T-DERMAL SCH (21:00)
[2018-02-05] MEDS: DONEPEZIL HCL 5 MG TAB PO SCH (21:37)
[2018-02-05] MEDS: ATORVASTATIN 40 MG TAB PO SCH (21:37)
[2018-02-06 06:15] VITALS: BP 124/61; PULSE 74; RESP 18; TEMP 97.7; O2SAT 97
[2018-02-06] MEDS: NICOTINE 21 MG/24 HR PATCH T-DERMAL SCH (09:00)
[2018-02-06] MEDS: HYDROCHLOROTHIAZIDE 25 MG TAB PO SCH (09:30)
[2018-02-06] MEDS: LISINOPRIL 10 MG TAB PO SCH (09:30)
[2018-02-06] MEDS: ZIPRASIDONE HCL 20 MG CAP PO SCH ×2 (09:30→20:16)
[2018-02-06] MEDS: DIVALPROEX SODIUM E.R. 250 MG TAB PO SCH ×2 (09:30→20:16)
[2018-02-06] MEDS: BUDESONIDE-FORMOTEROL 160/4.5 MCG INHALER INH SCH ×2 (09:30→20:16)
[2018-02-06] MEDS: risperiDONE 0.25 MG TAB PO SCH ×2 (09:30→20:16)
--- NOTE | 2018-02-06 11:10 | HHI.PYPN ---
Subjective Remarks Patient was seen and case discussed with nursing. Patient remains very psychotic responding to internal stimuli all day. During my interview he has grandiose delusions building [address] [facility]. As we continued he dismisses us from the interview is normal. Compliant with medications. Seclusive to self Mental Status Examination Appearance: Disheveled Consciousness: Alert Orientation: Person Motor Activity: Abnormal gait Speech: Incoherent Language: Adequate Fund of Knowledge: Inadequate Attention and Concentration: Adequate Memory: Impaired Mood: Appropriate Affect: Appropriate Thought Process & Associations: Loose associations, Disorganized Thought Content: Bizarre thinking, Other ([place]) Hallucination Type: None Delusion Type: Bizarre, Other ([place]) Suicidal Ideation: No Suicidal Plan: No Suicidal Intention: No Homicidal Ideation: No Homicidal Plan: No Homicidal Intention: No Insight: Poor Judgment: Poor Results Vitals/IOs Vital Signs Date Time Temp Pulse Resp B/P (MAP) Pulse Ox O2 Delivery O2 Flow Rate FiO2 02/06/18 06:15 97.7 74 18 124/61 (82) 97 Intake and Output 02/06/18 02/06/18 02/07/18 08:00 16:00 00:00 Intake Total 2 ml Balance 2 ml Assessment & Plan Problem List: (1) DEMENTIA IN OTH DISEASES CLASSD ELSWHR W BEHAVIORAL DISTURB ICD Codes: F02.81 - DEMENTIA IN OTH DISEASES CLASSD ELSWHR W BEHAVIORAL DISTURB (2) ALZHEIMER'S DISEASE WITH LATE ONSET ICD Codes: G30.1 - ALZHEIMER'S DISEASE WITH LATE ONSET Assessment & Plan Continue current treatment plan Justification for Cont. Inpt. Patient would decompensate in a less restrictive setting Request HC Surrog/Guard Advoc?: Yes Octavio Mcrae DO Feb 06, 2018 11:10
[2018-02-06 11:47] LABS: BICARBONATE 27.7 MEQ/L (21.0-32.0); BLOOD UREA NITROGEN 23 MG/DL (7-18); CALCIUM 9.2 MG/DL (8.5-10.1); CHLORIDE 97 MEQ/L (98-107); CREATININE 1.56 MG/DL (0.60-1.30); GLOMERULAR FILTRATION RATE 45 ML/MIN (>89); GLUCOSE,RANDOM 121 MG/DL (74-106); SODIUM (NA) 134 MEQ/L (136-145)
[2018-02-06 11:49] LABS: CHOLESTEROL 69 MG/DL (120-200); TRIGLYCERIDES 78 MG/DL (42-150)
[2018-02-06 11:51] LABS: CHOLESTEROL/ HDL RATIO 2.09 RATIO; LDL CHOLESTEROL 20 MG/DL (0-99)
[2018-02-06 18:09] VITALS: BP 122/66; PULSE 77; RESP 18; TEMP 97.7; O2SAT 96
[2018-02-06] MEDS: REMOVE OLD NICODERM (NICOTINE) PATCH T-DERMAL SCH (20:16)
[2018-02-06] MEDS: ATORVASTATIN 40 MG TAB PO SCH (20:16)
[2018-02-06] MEDS: DONEPEZIL HCL 5 MG TAB PO SCH (20:16)
[2018-02-07 06:03] VITALS: BP 122/60; PULSE 75; RESP 14; TEMP 97.4; O2SAT 98
[2018-02-07] MEDS: HYDROCHLOROTHIAZIDE 25 MG TAB PO SCH (09:00)
[2018-02-07] MEDS: NICOTINE 21 MG/24 HR PATCH T-DERMAL SCH (09:00)
[2018-02-07] MEDS: LISINOPRIL 10 MG TAB PO SCH (09:37)
[2018-02-07] MEDS: risperiDONE 0.25 MG TAB PO SCH ×2 (09:37→20:38)
[2018-02-07] MEDS: ZIPRASIDONE HCL 20 MG CAP PO SCH ×2 (09:37→20:38)
[2018-02-07] MEDS: DIVALPROEX SODIUM E.R. 250 MG TAB PO SCH ×2 (09:37→20:38)
[2018-02-07] MEDS: BUDESONIDE-FORMOTEROL 160/4.5 MCG INHALER INH SCH ×2 (09:38→20:39)
[2018-02-07 16:18] LABS: HEMOGLOBIN A1C 5.2 % (4.3-6.0)
[2018-02-07 17:14] VITALS: BP 124/73; PULSE 100; RESP 16; TEMP 98.1; O2SAT 97
--- NOTE | 2018-02-07 17:38 | HHI.PYPN ---
Subjective Remarks Patient seen for follow, chart reviewed. Discussion nursing staff reported the patient has been mostly seclusive to his room, alert and oriented only to person , was still noted to have some grandiose delusion yesterday, but medication compliant. Patient was found in room noted B, cooperative but dismissive toward end of interview. Patient states that he has been sleeping okay, reports eating and drinking well, throat reports tolerating medications well with no adverse drug reactions. Patient states that his mood has been " positive denying any perception disturbances. Patient continues to be alert and oriented only to person. Patient states that he has no longer have any surviving siblings but then later acknowledges that his brother has been involved in his care in the past. Patient also reports living alone but currently living in assisted living facility at this time. Review of Systems Except as stated in HPI: all other systems reviewed are Neg Mental Status Examination Appearance: Disheveled Consciousness: Alert Orientation: Person Motor Activity: Abnormal gait Speech: Unremarkable Language: Adequate Fund of Knowledge: Inadequate Attention and Concentration: Adequate Memory: Impaired Mood: Appropriate Affect: Blunt Thought Process & Associations: Loose associations, Disorganized Thought Content: Bizarre thinking, Other (Grandiose) Hallucination Type: None Delusion Type: Bizarre, Other ([place]iose) Suicidal Ideation: No Suicidal Plan: No Suicidal Intention: No Homicidal Ideation: No Homicidal Plan: No Homicidal Intention: No Insight: Poor Judgment: Poor Results Vitals/IOs Vital Signs Date Time Temp Pulse Resp B/P (MAP) Pulse Ox O2 Delivery O2 Flow Rate FiO2 02/07/18 17:14 98.1 100 16 124/73 (90) 97 Intake and Output 02/07/18 02/07/18 02/08/18 08:00 16:00 00:00 Intake Total 0 ml Balance 0 ml Assessment & Plan Problem List: (1) DEMENTIA IN OTH DISEASES CLASSD ELSWHR W BEHAVIORAL DISTURB ICD Codes: F02.81 - DEMENTIA IN OTH DISEASES CLASSD ELSWHR W BEHAVIORAL DISTURB (2) ALZHEIMER'S DISEASE WITH LATE ONSET ICD Codes: G30.1 - ALZHEIMER'S DISEASE WITH LATE ONSET Assessment & Plan Patient this time continues to be alert and oriented only to person, giving inaccurate history, likely secondary to his neurocognitive deficits. Patient noted to be less irritable today compared to previous encounters as per chart. Patient has not had any behavioral start disorder been aggressive towards staff recently. Patient denied perception disturbances. Patient compliant with treatment. Continue current treatment regimen. Continue to monitor mood and behavior. Discharge planning in progress. Justification for Cont. Inpt. At risk for further decompensation if at lower level of care Request HC Surrog/Guard Advoc?: Yes Kael Garcia MD Feb 07, 2018 17:38
[2018-02-07] MEDS: DONEPEZIL HCL 5 MG TAB PO SCH (20:38)
[2018-02-07] MEDS: ATORVASTATIN 40 MG TAB PO SCH (20:38)
[2018-02-07] MEDS: REMOVE OLD NICODERM (NICOTINE) PATCH T-DERMAL SCH (21:00)
[2018-02-08 06:11] VITALS: BP 125/63; PULSE 90; RESP 18; TEMP 98.1; O2SAT 98
[2018-02-08] MEDS: LISINOPRIL 10 MG TAB PO SCH (08:20)
[2018-02-08] MEDS: risperiDONE 0.25 MG TAB PO SCH (08:20)
[2018-02-08] MEDS: ZIPRASIDONE HCL 20 MG CAP PO SCH ×2 (08:22→20:33)
[2018-02-08] MEDS: HYDROCHLOROTHIAZIDE 25 MG TAB PO SCH (08:22)
[2018-02-08] MEDS: DIVALPROEX SODIUM E.R. 250 MG TAB PO SCH ×2 (08:22→20:32)
[2018-02-08] MEDS: BUDESONIDE-FORMOTEROL 160/4.5 MCG INHALER INH SCH ×2 (08:25→20:32)
[2018-02-08] MEDS: NICOTINE 21 MG/24 HR PATCH T-DERMAL SCH (09:00)
--- NOTE | 2018-02-08 13:54 | PD.TTN ---
Patient Problems 1. Discharge planning 2. Medication compliance 3. Knowledge deficit 4. Lack of coping skills Progress Toward Goals Provider Present: Dr. Maggie Topete, Dr. Dimitrios Garcia Provider Input: 02/07/18 patient in need for medications to improve - will be seen for first time today by Dr Garcia 02/02/18 patient is still in need to be on medications that he has been on , he remains delusional and talking to self 01/31/18 patient is new , appearing psychotic Psychiatric Counselors Present: Jennifer Duran LCSW Psych Therapist Input: 02/07/18 better since on medications asked [facility] to come out and look at hime he has been at [facility] and can return if he is improved with home health care 02/02/18 patient is psychotic and secludes to self 01/31/18 patient came from [facility]. New today. He refuses to talk. Group Spec/RT/OT/GARRETT Present: Barbara Silveira, GPS Group Spec/RT/OT/GARRETT Input: 02/07/18 isolates in his room and refuses to attend group activities 02/02/18 secludes to self and does not attend groups 01/31/18 new to rec tx and refuses to talk Jennifer Duran LCSW Feb 08, 2018 13:54
[2018-02-08 15:55] VITALS: BP 110/58; PULSE 77; RESP 17; TEMP 98.2; O2SAT 99
[2018-02-08 15:56] VITALS: BP 110/58; PULSE 77; RESP 18; TEMP 98.2; O2SAT 99
--- NOTE | 2018-02-08 16:30 | HHI.PYPN ---
Subjective Remarks Patient seen for follow, chart reviewed. Discussion nursing staff reported patient not noted to be as irritable, continues to be disheveled, not attending any groups, isolated, but compliant with treatment. Patient was found lying hospital bed noted B, cooperative. Patient stated to be "alright" reported sleeping well, eating and drinking well no difficulty or bowel movement, when asked about events that brought him to the hospital as patient was unable to provide explanation but did state that there was another client in the facility which was positive with but states he has never had arguments or any physical confrontation with this person. Patient agreed to have difficult level drawn tomorrow morning and agreed to shower today. Review of Systems Except as stated in HPI: all other systems reviewed are Neg Mental Status Examination Appearance: Disheveled Consciousness: Alert Orientation: Person Motor Activity: Abnormal gait Speech: Unremarkable Language: Adequate Fund of Knowledge: Inadequate Attention and Concentration: Adequate Memory: Impaired Mood: Appropriate Affect: Blunt Thought Process & Associations: Other ([place]) Thought Content: Appropriate Hallucination Type: None Delusion Type: Bizarre, Other (Grandiose) Suicidal Ideation: No Suicidal Plan: No Suicidal Intention: No Homicidal Ideation: No Homicidal Plan: No Homicidal Intention: No Insight: Poor Judgment: Poor Results Vitals/IOs Vital Signs Date Time Temp Pulse Resp B/P (MAP) Pulse Ox O2 Delivery O2 Flow Rate FiO2 02/08/18 15:56 98.2 77 18 110/58 (75) 99 Assessment & Plan Problem List: (1) DEMENTIA IN OTH DISEASES CLASSD ELSWHR W BEHAVIORAL DISTURB ICD Codes: F02.81 - DEMENTIA IN OTH DISEASES CLASSD ELSWHR W BEHAVIORAL DISTURB (2) ALZHEIMER'S DISEASE WITH LATE ONSET ICD Codes: G30.1 - ALZHEIMER'S DISEASE WITH LATE ONSET Assessment & Plan Patient this time with no behavioral disturbances, noted to be calm pleasant and cooperative during interview noted to be irritable or dismissive as he had done initially. Patient has been compliant with treatment, will discontinue risperidone as patient also on ziprasidone. We will increase ziprasidone to 40 mg p.o. daily for psychosis. Continue rest of medications. We will draw Depakote level tomorrow morning. Continue monitor mood and behavior. Continue encourage patient to maintain personal hygiene as well as to participate in groups and activities. Discharge planning in progress. Justification for Cont. Inpt. At risk of further decompensation at lower level of care. Discharge Planning Patient to return back to his residence when psychiatrically stable. Request HC Surrog/Guard Advoc?: Yes Kael Garcia MD Feb 08, 2018 16:30
[2018-02-08] MEDS: ATORVASTATIN 40 MG TAB PO SCH (20:33)
[2018-02-08] MEDS: DONEPEZIL HCL 5 MG TAB PO SCH (20:33)
[2018-02-08] MEDS: REMOVE OLD NICODERM (NICOTINE) PATCH T-DERMAL SCH (21:00)
[2018-02-09 05:46] VITALS: BP 107/61; PULSE 83; RESP 16; TEMP 97.3; O2SAT 96
[2018-02-09] MEDS: LISINOPRIL 10 MG TAB PO SCH (08:51)
[2018-02-09] MEDS: BUDESONIDE-FORMOTEROL 160/4.5 MCG INHALER INH SCH (08:51)
[2018-02-09] MEDS: HYDROCHLOROTHIAZIDE 25 MG TAB PO SCH (08:53)
[2018-02-09] MEDS: ZIPRASIDONE HCL 20 MG CAP PO SCH (08:53)
[2018-02-09] MEDS: DIVALPROEX SODIUM E.R. 250 MG TAB PO SCH (08:54)
[2018-02-09] MEDS: NICOTINE 21 MG/24 HR PATCH T-DERMAL SCH (09:00)
--- NOTE | 2018-02-09 09:09 | EKG ---
Date Performed: 02/08/2018 Time Performed: 17:07:48 PTAGE: 62 years EKG: Sinus rhythm NONSPECIFIC T-WAVE ABNORMALITY BORDERLINE ECG NO PREVIOUS TRACING DOCTOR: Dominic Benz Interpretating Date/Time 02/09/2018 09:06:58
--- NOTE | 2018-02-09 10:40 | PD.TTN ---
Patient Problems 1. Discharge planning 2. Medication compliance 3. Knowledge deficit 4. Lack of coping skills Progress Toward Goals Provider Present: Dr. Dimitrios Garcia Provider Input: 02/09/18: Meds Changed. 1823 to be completed. 02/07/18 patient in need for medications to improve - will be seen for first time today by Dr Garcia 02/02/18 patient is still in need to be on medications that he has been on , he remains delusional and talking to self 01/31/18 patient is new , appearing psychotic Psychiatric Counselors Present: Jennifer Duran, [facility], Fanny Neri, [facility], Aime Angelo Jr., [facility], Svetlana Ohara, [facility], Bibi Hardy, [facility] Psych Therapist Input: 02/09/18. Return to [facility] with [facility]. 02/07/18 better since on medications asked [facility] to come out and look at hime he has been at the [facility] in [facility] and can return if he is improved with home health care 02/02/18 patient is psychotic and secludes to self 01/31/18 patient came from [facility]. New today. He refuses to talk. Group Spec/RT/OT/GARRETT Present: MARK Carey Group Spec/RT/OT/GARRETT Input: 02/09/18: Although encouraged to participate in the various group activities, patient declines and prefers to isolate to his room. 02/07/18 isolates to his room and refuses to attend group activities 02/02/18 secludes to self and does not attend groups 01/31/18 new to rec tx and refuses to talk Discharge Plan Home Healthcare Documentation Scribe: Barbara Valles Feb 09, 2018 10:40
[2018-02-09] MEDS ORDERED: ATOR40TA16 PO (14:35)
[2018-02-09] MEDS ORDERED: DONE10TA7 PO (14:35)
[2018-02-09] MEDS ORDERED: LISI10TA3 PO (14:35)
[2018-02-09] MEDS ORDERED: Budeson-Formot 160-4.5 Mcg Inh INH (14:35)
[2018-02-09] MEDS ORDERED: HYDR25TA5 PO (14:35)
[2018-02-09] MEDS ORDERED: ZIPR1CAP8 PO (14:35)
[2018-02-09] MEDS ORDERED: DIVA250T3 PO (14:35)
--- NOTE | 2018-02-09 16:40 | HHI.DS ---
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 Per the Lewis act report patient was acting aggressively. He stated that he would hurt however he wanted to. The shelter reported that he was not taking his medications however his medication reconciliation from the shelter shows medications have been given. Patient states he has been taking his medications. Patient denies any complaints at this time. He denies any significant past medical history. He denies any suicidal homicidal ideations, hallucinations both auditory and visual. Symptom onset is unknown, symptom severity is unknown. On my psychiatric evaluation today the patient is disorganized, agitated, hyperactive, talking to himself. 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 The patient is just oriented in person, disoriented in time and place. As per nurse report, the patient has been agitated, at times aggressive, the patient did not sleep at all last night talking to himself. Tobacco Use In Past 30 Days: 4 or Less Cigarettes/Day Alcohol Use: Never Results Blood Pressure 107 / 61 Vital Signs Date Time Temp Pulse Resp B/P (MAP) Pulse Ox O2 Delivery O2 Flow Rate FiO2 02/09/18 05:46 97.3 83 16 107/61 (76) 96 Laboratory Tests Test 02/09/18 08:10 Laboratory Results Test 02/06/18 09:30 02/09/18 08:10 Cholesterol Level 69 MG/DL (120-200) HDL Cholesterol 33.0 MG/DL (40.0-60.0) Hemoglobin A1c 5.2 % (4.3-6.0) LDL Cholesterol 20 MG/DL (0-99) Triglycerides Level 78 MG/DL (42-150) Valproic Acid (Depakene) Level 52 MCG/ML (50-100) Medications Approp Antipsych med options 1 - Minimum of three failed multiple trials of monotherapy. 2 - Documented plan to taper to monotherapy due to previous use of multiple meds OR cross-taper in progress at [facility]. 3 - Documentation of augmentation of Clozapine. 4 - Justification other than those listed in allowable values 1-3, document here : Discharge Pt Condition on Discharge: Stable Discharge Disposition: [facility] Discharge Instructions Diet Instructions: As Tolerated, No Restrictions Activities you can perform: Regular-No Restrictions Scheduled Appointment: [facility] Mental Status Examination Appearance: Disheveled Consciousness: Alert Orientation: Person Motor Activity: Abnormal gait Speech: Unremarkable Language: Adequate Fund of Knowledge: Inadequate Attention and Concentration: Adequate Memory: Impaired Mood: Appropriate Affect: Blunt Thought Process & Associations: Other (Murray) Thought Content: Appropriate Hallucination Type: None Delusion Type: Bizarre, Other (Grandiose) Suicidal Ideation: No Suicidal Plan: No Suicidal Intention: No Homicidal Ideation: No Homicidal Plan: No Homicidal Intention: No Insight: Poor Judgment: Poor Discharge/Advance Care Plan Health Problems: (1) DEMENTIA IN OTH DISEASES CLASSD ELSWHR W BEHAVIORAL DISTURB (2) ALZHEIMER'S DISEASE WITH LATE ONSET Goals to promote your health * To prevent worsening of your condition and complications * To maintain your health at the optimal level Directions to meet your goals Take your medications as prescribed Follow your dietary instruction Follow activity as directed Keep your appointments as scheduled Take your immunizations and boosters as scheduled If your symptoms worsen call your PCP, if no PCP go to Urgent Care Center or Emergency Room For / questions related to your inpatient stay or results of tests pending at discharge, please contact Dr. Kael Garcia at Smoking is Dangerous to Your Health. Avoid second hand smoking Kael Garcia MD Feb 09, 2018 16:40
== END 2018-02-09 15:30 | DRG 57 ==
LOC: NEPJ 12:54 → NEDA 01-29 09:03 → H250 01-29 10:45 → H260 02-02 14:31
PROVIDERS: ADMIT Student in an Organized Health Care Education/Training Program; ATTEND Student in an Organized Health Care Education/Training Program
DX: G30.1 Alzheimer's disease with late onset (principal); F02.81 Dementia in other diseases classified elsewhere, unspecified severity, with behavioral disturbance; E78.00 Pure hypercholesterolemia, unspecified; J44.9 Chronic obstructive pulmonary disease, unspecified; F17.210 Nicotine dependence, cigarettes, uncomplicated; R00.0 Tachycardia, unspecified; Z79.899 Other long term (current) drug therapy
CPT/HCPCS: 80048; 80053; 80061; 80164; 80307; 81001; 83036; 84443; 85025; 93005; 99285